=== PATIENT | female | born 1945 | race Hispanic/Latino ===

== ENCOUNTER 2018-01-11 21:00 | Emergency (ER) | payer MEDICARE ==
[~2018-01-11] VITALS: Ht 162.6 cm; Wt 81.6 kg
[2018-01-11] MEDS ORDERED: TRAMADOL HCL 50 MG TAB PO ONE (21:15)
--- NOTE | 2018-01-11 22:12 | Diagnostic Imaging Report ---
ANKLE 3+ VIEWS LEFT, FOOT LEFT COMPLETE Comparison: None Clinical history: Left ankle/foot pain after falling Findings: Moderate soft tissue swelling about the lateral malleolus. Nondisplaced oblique fracture of the distal fibula to the level of ankle joint. No additional fractures or malalignment. Mild first MTP and midfoot degenerative changes. Impression: Nondisplaced oblique fracture of the distal fibula, as above. Signed by: Dr Dominique Montano MD on 01/11/2018 10:08 PM
[2018-01-11 23:07] VITALS: BP 120/68
== END 2018-01-11 23:08 | disposition home or self-care (01) ==
LOC: ER 21:00
DX: S82.425A Nondisplaced transverse fracture of shaft of left fibula, initial encounter for closed fracture (principal); W18.39XA Other fall on same level, initial encounter; Y92.008 Other place in unspecified non-institutional (private) residence as the place of occurrence of the external cause
CPT/HCPCS: 99284

== ENCOUNTER 2018-01-21 13:46 | Emergency (ER) | payer MEDICARE ==
[~2018-01-21] VITALS: Ht 162.6 cm; Wt 81.6 kg
== END 2018-01-21 17:00 | disposition home or self-care (01) ==
LOC: ER 13:46
DX: M54.31 Sciatica, right side (principal); R26.2 Difficulty in walking, not elsewhere classified
CPT/HCPCS: 99283

== ENCOUNTER 2020-05-27 17:46 | Emergency (ER) | payer MEDICARE ==
[~2020-05-27] VITALS: Ht 162.6 cm; Wt 81.6 kg
[2020-05-27] MEDS ORDERED: DONNATAL/LIDOCAINE/MAALOX 30 ML SUSP PO STA (18:06)
[2020-05-27] MEDS ORDERED: ASPIRIN 81 MG CHEW TAB PO ONE ×2 (18:15→21:15)
[2020-05-27 18:46] LABS: BASOPHILS # (AUTO) 0.1 (0.0-0.1); BASOPHILS % 0.5 % (0.0-1.0); EOSINOPHILS # (AUTO) 0.2 (0.0-0.4); EOSINOPHILS % 1.5 % (0.0-6.0); HEMATOCRIT 36.9 % (34.2-44.1); HEMOGLOBIN 12.5 g/dL (12.0-16.0); LYMPHOCYTES # (AUTO) 3.5 (1.0-3.2); MEAN CORPUSCULAR HEMOGLOBIN 30.6 pg (28-32); MEAN CORPUSCULAR HGB CONC 33.9 g/dL (31-35); MEAN CORPUSCULAR VOLUME 90.4 fL (81-99); MONOCYTES # (AUTO) 0.9 (0.2-0.8); MONOCYTES % 6.8 % (4.4-11.3); NEUTROPHILS # (AUTO) 8.1 (2.1-6.9); NEUTROPHILS % 63.6 % (38.7-80.0); PLATELET COUNT 333 x10e3/uL (140-360); RED BLOOD COUNT 4.08 x10e6/uL (3.6-5.1); RED CELL DISTRIBUTION WIDTH 12.8 % (11.7-14.4)
[2020-05-27 19:05] LABS: ALBUMIN 3.9 g/dL (3.5-5.0); ALBUMIN/GLOBULIN RATIO 1.3 (0.8-2.0); ANION GAP 14.7 mmol/L (8-16); CALCIUM 9.5 mg/dL (8.4-10.2); CREATININE, SERUM 0.94 mg/dL (0.57-1.11); POTASSIUM 4.7 mmol/L (3.5-5.1)
[2020-05-27 19:11] LABS: CREATINE KINASE MB 2.2 ng/mL (0-5.0)
[2020-05-27 21:26] LABS: CREATINE KINASE 54 IU/L (29-168)
[2020-05-27] MEDS ORDERED: SODIUM CHLORIDE 0.9% 50ML 50 ML ONE (22:48)
[2020-05-27] MEDS ORDERED: IOPAMIDOL 370 MG/ML 200 ML INFUS..BTL INJ ONE (22:48)
[2020-05-28 00:20] VITALS: BP 142/72
[2020-05-28] MEDS ORDERED: NITROGLYCERIN 0.1MG/HR PATCH TOP SCH (09:00)
== END 2020-05-28 00:21 | disposition home or self-care (01) ==
LOC: ER 19:07
DX: R07.9 Chest pain, unspecified (principal); R06.02 Shortness of breath; R10.13 Epigastric pain; E78.5 Hyperlipidemia, unspecified; E78.00 Pure hypercholesterolemia, unspecified
CPT/HCPCS: 36415; 71045; 71260; 80053; 82550; 82553; 84484; 85025; 85379; 93005; 99284; Q9967